=== PATIENT | male | born 1975 | race Caucasian/White ===

== ENCOUNTER → 2018-07-28 | Outpatient (CLI) | payer OTHER ==
--- NOTE | 2018-07-28 10:19 | REP ---
MAXILLOFACIAL CT WITHOUT CONTRAST: HISTORY: Chronic maxillary sinusitis. Minimal mucosal thickening is present in the ethmoid, maxillary and right sphenoid sinuses. The remaining sinuses are clear. Mucosal thickening involves the osteomeatal units. The middle and inferior nasal turbinates are partially paradoxical. There is felicita bullosa of the right middle nasal turbinate. There is moderate deviation of the nasal septum to the right. A spur is present arising from the right side of the nasal septum. The cribriform plate, medial blackmon of the orbits and optic canals are intact. The carotid canals form a segment of the posterolateral blackmon of the sphenoid sinus. IMPRESSION: Sinus mucosal thickening as described above. Electronically Signed by Javier Loving MD 07/28/2018 10:27 A
== END ==
LOC: M RAD 08:29
PROVIDERS: ATTEND Otolaryngology
DX: J34.2 Deviated nasal septum (principal); J34.89 Other specified disorders of nose and nasal sinuses